=== PATIENT | male | born 1980 | race Caucasian/White ===

== ENCOUNTER 2025-02-23 09:09 | Emergency (ER) | payer OTHER ==
[~2025-02-23] VITALS: Ht 177.8 cm; Wt 63.5 kg
[2025-02-23] MEDS ORDERED: IOHEXOL 300 MG/ML 100 ML VIAL IV ONE (10:15)
[2025-02-23] MEDS ORDERED: IOHEXOL 300 MG/ML 100 ML VIAL ONE (10:39)
[2025-02-23] MEDS ORDERED: Ondansetron Hydrochloride 4 MG/2 ML VIAL IV ONE (11:05)
[2025-02-23] MEDS ORDERED: Acetaminophen/Oxycodone 5 MG/325 MG TABLET PO ONE (11:45)
== END 2025-02-23 12:00 | disposition home or self-care (01) ==
LOC: ED 09:09
DX: S42.102A Fracture of unspecified part of scapula, left shoulder, initial encounter for closed fracture (principal); M25.512 Pain in left shoulder; W19.XXXA Unspecified fall, initial encounter; Y93.89 Activity, other specified; Y92.89 Other specified places as the place of occurrence of the external cause; Y99.8 Other external cause status